=== PATIENT | female | born 1970 | race Caucasian/White ===

== ENCOUNTER 2018-09-16 21:52 | Emergency (ER) | payer MEDICAID ==
[2018-09-16] MEDS ORDERED: Sodium Chloride 0.9% 10 ML Syringe FLUSH PRN (22:26)
[2018-09-16] MEDS: Nitroglycerin 0.4 MG Tab.SL SL PRN ×2 (22:31→22:37)
[2018-09-16] MEDS ORDERED: Alum Hydrox/Mag Hydrox/Simeth 15 ML, Lidocaine 2% 15 ML PO ONE ×2 (22:42)
[2018-09-16] MEDS ORDERED: LORazepam 0.5 MG Tab PO ONE (22:42)
--- NOTE | 2018-09-16 23:14 | EDM.PDOC ---
ED HPI GENERAL MEDICAL PROBLEM - General Chief Complaint: Chest Pain Stated Complaint: CHEST PAINS Time Seen by Provider: 09/16/18 22:10 Source of Information: Reports: Patient History Limitations: Reports: No Limitations - History of Present Illness INITIAL COMMENTS - FREE TEXT/NARRATIVE: pt arrived with burning chest pain accross her upper upper chest. She did not get sweating. Started earlier in the day. Onset: Today Duration: Hour(s): Location: Reports: Chest, Other ( burning accross the chest) Associated Symptoms: Reports: Chest Pain, Shortness of Breath chest Pain Score (Numeric/FACES): 4 - Related Data Allergies Allergy/AdvReac Type Severity Reaction Status Date / Time aspirin Allergy Hives Verified 09/16/18 22:06 tramadol Allergy Agitation Verified 09/16/18 22:06 Home Meds: Home Meds NK [No Known Home Meds] 12/14/14 [History] Past Medical History Musculoskeletal History: Reports: Fracture - Past Surgical History Female Surgical History: Reports: Tubal Ligation Musculoskeletal Surgical History: Reports: Arthroscopic Knee Social & Family History - Tobacco Use Smoking Status *Q: Former Smoker Used Tobacco, but Quit: Yes Month/Year Tobacco Last Used: 4 - Caffeine Use Caffeine Use: Reports: Coffee - Recreational Drug Use Recreational Drug Use: No ED ROS GENERAL - Review of Systems Review Of Systems: See Below Constitutional: Reports: No Symptoms HEENT: Reports: No Symptoms Respiratory: Reports: Shortness of Breath, Other ( burning pain accross the upper chest. ) Cardiovascular: Reports: Other ( burning chest pain accross the upper chest. ) Endocrine: Reports: No Symptoms GI/Abdominal: Reports: No Symptoms : Reports: No Symptoms Musculoskeletal: Reports: No Symptoms Skin: Reports: No Symptoms ED EXAM, GENERAL - Physical Exam Exam: See Below Free Text/Narrative:: pt arrived looking very anxious and having burning chest pain accross her chest. She did note that she was a little more sob than usual when she walked to the mailbox. She has no history of heart disease. She did sit doing a class all day today and now she notes ankle swelling. She has been eating some salty foods. Exam Limited By: No Limitations General Appearance: Alert, Anxious, Moderate Distress, Other ( she had burning accross her chest. ) Ears: Normal TMs Nose: Normal Inspection Throat/Mouth: Normal Inspection Head: Atraumatic Neck: Normal Inspection Respiratory/Chest: No Respiratory Distress Cardiovascular: Regular Rate, Rhythm, Other (pt did not have chest wall tenderness. ) GI/Abdominal: Soft, Non-Tender (Female) Exam: Deferred Rectal (Female) Exam: Deferred Back Exam: Normal Inspection Extremities: Pedal Edema, Other (pt has plus 2 pitting edema. ) Neurological: Alert, Oriented Psychiatric: Normal Affect Course - Vital Signs Last Recorded V/S: Last Vital Signs Temp 37.1 C 09/16/18 23:00 Pulse 97 09/16/18 23:52 Resp 12 09/16/18 23:52 BP 177/93 H 09/16/18 23:52 Pulse Ox 99 09/16/18 23:52 - Orders/Labs/Meds Labs: Laboratory Tests 09/16/18 09/16/18 09/16/18 Range/Units 22:00 22:00 22:00 WBC 6.8 (4.5-11.0) K/uL RBC 4.05 (3.30-5.50) M/uL Hgb 11.9 L (12.0-15.0) g/dL Hct 36.8 (36.0-48.0) % MCV 91 (80-98) fL MCH 29 (27-31) pg MCHC 32 (32-36) % Plt Count 247 (150-400) K/uL Neut % (Auto) 62 (36-66) % Lymph % (Auto) 24 (24-44) % [place] % (Auto) 10 H (2-6) % Eos % (Auto) 2 (2-4) % Baso % (Auto) 1 (0-1) % Sodium 139 L (140-148) mmol/L Potassium 3.3 L (3.6-5.2) mmol/L Chloride 103 (100-108) mmol/L Carbon Dioxide 25 (21-32) mmol/L Anion Gap 14.3 H (5.0-14.0) mmol/L BUN 10 (7-18) mg/dL Creatinine 0.7 (0.6-1.0) mg/dL Est Cr Clr Drug Dosing 94.54 mL/min Estimated GFR (MDRD) > 60 (>60) Glucose 138 H (74-106) mg/dL Calcium 9.4 (8.5-10.1) mg/dL Total Bilirubin 0.3 (0.2-1.0) mg/dL AST 18 (15-37) U/L ALT 21 (12-78) U/L Alkaline Phosphatase 92 (46-116) U/L Troponin I < 0.017 (0.000-0.056) ng/mL C-Reactive Protein (0.0-0.3) mg/dL NT-Pro-B Natriuret Pep (5-125) pg/mL Total Protein 7.3 (6.4-8.2) g/dL Albumin 3.2 L (3.4-5.0) g/dL Globulin 4.1 H (2.3-3.5) g/dL Albumin/Globulin Ratio 0.8 L (1.2-2.2) Urine Color Urine Appearance Urine pH (4.5-8.0) Ur Specific [place] (1.008-1.030) Urine Protein (NEGATIVE) mg/dL Urine Glucose (UA) (NEGATIVE) mg/dL Urine Ketones (NEGATIVE) mg/dL Urine Occult Blood (NEGATIVE) Urine Nitrite (NEGATIVE) Urine Bilirubin (NEGATIVE) Urine Urobilinogen (NORMAL) mg/dL Ur Leukocyte Esterase (NEGATIVE) Urine RBC (0-5) Urine WBC (0-5) Ur Epithelial Cells Amorphous Sediment Urine Bacteria Urine Mucus 09/16/18 09/16/18 09/16/18 Range/Units 23:14 23:32 23:55 WBC (4.5-11.0) K/uL RBC (3.30-5.50) M/uL Hgb (12.0-15.0) g/dL Hct (36.0-48.0) % MCV (80-98) fL MCH (27-31) pg MCHC (32-36) % Plt Count (150-400) K/uL Neut % (Auto) (36-66) % Lymph % (Auto) (24-44) % [place] % (Auto) (2-6) % Eos % (Auto) (2-4) % Baso % (Auto) (0-1) % Sodium (140-148) mmol/L Potassium (3.6-5.2) mmol/L Chloride (100-108) mmol/L Carbon Dioxide (21-32) mmol/L Anion Gap (5.0-14.0) mmol/L BUN (7-18) mg/dL Creatinine (0.6-1.0) mg/dL Est Cr Clr Drug Dosing mL/min Estimated GFR (MDRD) (>60) Glucose (74-106) mg/dL Calcium (8.5-10.1) mg/dL Total Bilirubin (0.2-1.0) mg/dL AST (15-37) U/L ALT (12-78) U/L Alkaline Phosphatase (46-116) U/L Troponin I < 0.017 (0.000-0.056) ng/mL C-Reactive Protein 0.35 H (0.0-0.3) mg/dL NT-Pro-B Natriuret Pep 582 H (5-125) pg/mL Total Protein (6.4-8.2) g/dL Albumin (3.4-5.0) g/dL Globulin (2.3-3.5) g/dL Albumin/Globulin Ratio (1.2-2.2) Urine Color Yellow Urine Appearance Clear Urine pH 5.0 (4.5-8.0) Ur Specific [place] 1.005 L (1.008-1.030) Urine Protein Negative (NEGATIVE) mg/dL Urine Glucose (UA) Normal (NEGATIVE) mg/dL Urine Ketones Negative (NEGATIVE) mg/dL Urine Occult Blood Negative (NEGATIVE) Urine Nitrite Negative (NEGATIVE) Urine Bilirubin Negative (NEGATIVE) Urine Urobilinogen Normal (NORMAL) mg/dL Ur Leukocyte Esterase Negative (NEGATIVE) Urine RBC 0-5 (0-5) Urine WBC 0-5 (0-5) Ur Epithelial Cells Few Amorphous Sediment Not seen Urine Bacteria Few Urine Mucus Not seen Meds: Medications Discontinued Medications Generic Name Dose Route Start Last Admin Trade Name Freq PRN Reason Stop Dose Admin Al Hydroxide/Mg Hydroxide 15 0 ml 09/16/18 22:42 09/16/18 22:47 ml/ Lidocaine HCl 15 ml PO 09/16/18 22:43 30 ml ONETIME ONE Administration Furosemide 20 mg 09/17/18 00:25 09/17/18 00:39 Lasix IVPUSH 09/17/18 00:26 20 mg ONETIME ONE Administration Ketorolac Tromethamine 30 mg 09/16/18 23:43 09/16/18 23:49 Toradol IVPUSH 09/16/18 23:44 30 mg ONETIME ONE Administration Lorazepam 0.5 mg 09/16/18 22:42 09/16/18 22:47 Ativan PO 09/16/18 22:43 0.5 mg ONETIME ONE Administration Nitroglycerin 0.4 mg 09/16/18 22:21 09/16/18 22:37 Nitrostat SL 0.4 mg Q5M PRN Administration Chest Pain Sodium Chloride 10 ml 09/16/18 22:26 09/16/18 22:34 Saline Flush FLUSH 10 ml ASDIRECTED PRN Administration Keep Vein Open - Re-Assessments/Exams Free Text/Narrative Re-Assessment/Exam: 09/17/18 00:44 pt had neg trops x2. Her bnp was very mildly elevated. Her chest xray was neg. She was very anxious on arrival. Departure - Departure Time of Disposition: 00:27 Disposition: Home, Self-Care 01 Condition: Fair Clinical Impression: Atypical chest pain, Pedal edema Instructions: Nonspecific Chest Pain, [id number], Edema, [id number] Referrals: PCP,None [Primary Care Provider] - Forms: ED Department Discharge Care Plan Goals: rtc for a exercise cardiolyte, lasix 20mg daily for 2 days, high k foods, rtc for a echo cardigeram, appt with Dr Rothman the first of the week.
[2018-09-16] MEDS ORDERED: Ketorolac 30 MG/ML SDV IVPUSH ONE (23:43)
[2018-09-16 23:52] VITALS: BP 177/93
[2018-09-17] MEDS ORDERED: Furosemide 20 MG/2 ML VIAL IVPUSH ONE (00:25)
--- NOTE | 2018-09-18 10:00 | CRLCR ---
Final Report: INDICATION: Burning chest pain TECHNIQUE: Chest 1 view COMPARISON: None FINDINGS: Cardiovascular and mediastinum: Heart size and vasculature are normal in caliber and appearance. Lungs and pleural spaces: No pleural effusion or pneumothorax. Trace basilar discoid atelectasis. Bones and soft tissues: No significant findings. IMPRESSION: Trace basilar discoid atelectasis. Dictated by Bernabe Garcia MD @ Sep 16 2018 11:51PM Signed by: Bernabe Garcia MD @09/16/2018 11:53:30 PM (Electronic Signature) [facility]OSPITALRadha
== END 2018-09-17 01:04 | disposition home or self-care (01) ==
LOC: JP.ED 21:52
DX: R07.89 Other chest pain (principal); R60.9 Edema, unspecified; Z87.891 Personal history of nicotine dependence; Z88.6 Allergy status to analgesic agent
CPT/HCPCS: 36415; 71045; 80053; 81001; 83880; 84484; 85025; 86140; 93005; 96374; 96375; 99285; A9270; J1885; J1940

== ENCOUNTER → 2018-09-24 | Outpatient (CLI) | payer OTHER, SELFPAY ==
[2018-09-24] MEDS: LORazepam 0.5 MG Tab PO ONE (08:49)
[2018-09-24 11:03] VITALS: BP 150/87; PULSE 111
--- NOTE | 2018-09-24 14:59 | CRLNM ---
MYOCARDIAL PERFUSION SCAN CLINICAL HISTORY: 47-year-old female. Atypical chest pain. 5 feet 7 inches, 212 pounds. TECHNIQUE: (Resting SPECT and Stress Gated SPECT with wall motion and ejection fraction, both in supine position) Stress: Treadmill (4 minutes 3 seconds) Maximum systolic blood pressure: 200 mmHg systolic Rate pressure product: 28,800 Dose (Stress/Rest): 30 mCi/10.5 mCi Tc-99m Sestamibi Tetrofosmin (IV) Comparison: None FINDINGS: There is good uptake of activity by the left ventricle. No left ventricular enlargement is noted. There is soft tissue attenuation and mild motion artifact. A small area of mild reversibility in the apical anterior septum is suspicious for mild ischemia. Please note the specificity of this finding may be decreased by the soft tissue attenuation and possible motion artifact. No other significant fixed or reversible defects are identified. The gated images demonstrate a normal left ventricular ejection fraction of approximately 65 percent. No regional wall motion abnormalities are identified. IMPRESSION: 1. There is a small area of mild reversibility in the apical anterior septum. This is suspicious for mild ischemia. Please note, however, that the specificity of this finding may be decreased by the soft tissue attenuation and by possible motion artifact. 2. Normal left ventricular ejection fraction of approximately 65 percent. Daniele Damon M.D. [employer] [facility] [email or web address] Transcribed: 2:36 pm DW/Dictated by: Daniele Damon MD @ 09/24/2018 12:37:00 PM (Electronically Signed)
--- NOTE | 2018-09-25 19:19 | STRESS ---
DATE OF SERVICE: 09/25/2018 PROCEDURE: Exercise Cardiolite study. TECHNIQUE: Ms. Romero was exercised for 4 minutes on the Phillip protocol for the exercise portion of the exercise Cardiolite study. Test was stopped when she reached greater than 85% of predicted maximal heart rate. She did experience symptoms of chest tightness and shortness of breath with exercise that resolved during the post exercise. She was able to reach a rate pressure product of 28,800 and a workload of 7.0 METS. Resting heart rate was 113 and went to 174 with exercise. This was greater than 100% of predicted maximal heart rate at 171. Resting ECG, sinus tachycardia, rate of 105, normal axis and intervals. There is nonspecific T-wave abnormality noted in the lateral leads. Similar findings were seen on the post hyperventilation and standing ECGs. No significant ST-segment changes, T-wave abnormalities were seen with exercise or in the post exercise. No significant dysrhythmias were noted during the monitoring. She did experience symptoms as reported above. IMPRESSION: Negative treadmill exercise portion of the exercise Cardiolite study, although at very low level of exercise she was able to reach greater than 100% of predicted maximal heart rate with this level of exercise. Jp Li MD /[id number]
== END | disposition home or self-care (01) ==
LOC: JP.ACU 07:19
PROVIDERS: ATTEND Family Medicine
DX: R07.89 Other chest pain (principal); I51.89 Other ill-defined heart diseases
CPT/HCPCS: 78452; 93017; 93306; A9270; A9500; 93018

== ENCOUNTER 2019-07-12 21:24 | Emergency (ER) | payer SELFPAY ==
--- NOTE | 2019-07-12 22:04 | EDM.PDOC ---
ED HPI GENERAL MEDICAL PROBLEM - General Chief Complaint: Laceration Stated Complaint: SLICED L LITTLE FINGER Time Seen by Provider: 07/12/19 21:56 Source of Information: Reports: Patient, RN Notes Reviewed History Limitations: Reports: No Limitations - History of Present Illness INITIAL COMMENTS - FREE TEXT/NARRATIVE: 48-year-old female presents emergency department today with a laceration to digit #5 left hand no functional complaints she injured herself well removing the plastic packaging from a product denies pain Pain Score (Numeric/FACES): 0 - Related Data Allergies Allergy/AdvReac Type Severity Reaction Status Date / Time aspirin Allergy Hives Verified 07/12/19 21:45 tramadol Allergy Agitation Verified 07/12/19 21:45 Home Meds: Home Meds Levothyroxine 125 mcg PO DAILY 07/12/19 [History] Past Medical History HEENT History: Reports: Impaired Vision Genitourinary History: Reports: UTI, Recurrent [employer] History: Reports: Musculoskeletal History: Reports: Fracture, RA Neurological History: Reports: Migraines Psychiatric History: Reports: Depression Endocrine/Metabolic History: Reports: Hypothyroidism Other Endocrine/Metabolic History: Grave's Disease - Infectious Disease History Infectious Disease History: Reports: Chicken Pox Other Infectious Disease History: roseola - Past Surgical History Female Surgical History: Reports: Tubal Ligation 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 Musculoskeletal Surgical History: Reports: Arthroscopic Knee Social & Family History - Tobacco Use Smoking Status *Q: Former Smoker Used Tobacco, but Quit: Yes Month/Year Tobacco Last Used: 2015 - Caffeine Use Caffeine Use: Reports: Tea - Recreational Drug Use Recreational Drug Use: No ED ROS GENERAL - Review of Systems Review Of Systems: See Below Musculoskeletal: Reports: No Symptoms Skin: Reports: Wound Neurological: Reports: No Symptoms ED EXAM, SKIN/RASH Exam: See Below Text/Narrative:: Examination of the left hand there is a 1 cm laceration palmar surface distal tip digit #5 it is partially through the dermis no functional complaints full range of motion of all digits sensation is intact radial pulse +2 ED SKIN PROCEDURES - Laceration/Wound Repair Left Digit - 5th (Baby) Appearance: Superficial, Linear Distal NVT: Neuro & Vascular Intact, No Tendon Injury Skin Prep: Saline Saline Irrigation (cc's): 20 Exploration/Debridement/Repair: Wound Explored, In a Bloodless Field, Explored to Base Closed with: Dermabond Lac/Wound length In cm: 1 Tetanus Status Addressed: Yes (Up-to-date) Complications: No Departure - Departure Time of Disposition: 22:03 Disposition: Home, Self-Care 01 Clinical Impression: Laceration of left little finger Qualifiers: Encounter type: initial encounter Damage to nail status: without damage Foreign body presence: without foreign body Qualified Code(s): S61.217A - Laceration without foreign body of left little finger without damage to nail, initial encounter - Discharge Information Instructions: Laceration Care, Adult Referrals: Philly Hardy MD [Primary Care Provider] - Additional Instructions: Follow-up with primary care as needed, follow wound care instruction sheet - Assessment/Plan Plan: Assessment Acuity = acute Site and laterality = laceration digit #5 left hand Etiology = secondary to trauma Manifestations = none Location of injury = Home Lab values = none Plan Follow wound care instruction sheet follow-up with primary care as needed This note was dictated using [employer] voice recognition software please call with any questions on syntax or grammar.
[2019-07-12 22:06] VITALS: BP 192/99; PULSE 93
== END 2019-07-12 22:08 | disposition home or self-care (01) ==
LOC: JP.ED 21:24
DX: S61.217A Laceration without foreign body of left little finger without damage to nail, initial encounter (principal); E03.9 Hypothyroidism, unspecified; Z79.82 Long term (current) use of aspirin; Z88.6 Allergy status to analgesic agent; Z79.899 Other long term (current) drug therapy; Z87.891 Personal history of nicotine dependence; W26.8XXA Contact with other sharp object(s), not elsewhere classified, initial encounter
CPT/HCPCS: 12001; 99282

== ENCOUNTER 2021-12-04 11:28 | Emergency (ER) | payer SELFPAY ==
[2021-12-04] MEDS ORDERED: Meropenem 1 GM in Sodium Chloride 0.9% 100 ML IV ONE (13:18)
[2021-12-04] MEDS ORDERED: Sodium Chloride 0.9% 1,000 ML IV SCH (13:30)
[2021-12-04] MEDS ORDERED: HYDROmorphone 0.5 MG/0.5 ML Syringe IVPUSH ONE (14:10)
[2021-12-04] MEDS ORDERED: Ketorolac 30 MG/ML SDV IVPUSH ONE (14:10)
[2021-12-04 15:57] VITALS: BP 152/83; PULSE 61
== END 2021-12-04 16:58 | disposition home or self-care (01) ==
LOC: JP.ED 11:28
DX: L03.314 Cellulitis of groin (principal); E03.9 Hypothyroidism, unspecified; Z88.5 Allergy status to narcotic agent; Z88.6 Allergy status to analgesic agent; Z79.899 Other long term (current) drug therapy
CPT/HCPCS: 36415; 76705; 80048; 84443; 85025; 96361; 96365; 96375; 99284; J1170; J1885; J2185; J7030; 99282